=== PATIENT | male | born 1960 | race Caucasian/White ===

== ENCOUNTER 2018-02-21 03:16 | Emergency (ER) | payer OTHER ==
[~2018-02-21] VITALS: Ht 177.8 cm; Wt 118.3 kg
[~2018-02-21 03:16] MED LIST: AMOX500T PO; FLON0.053; LORTA5; VALT1TAB26 PO
[2018-02-21 03:21] VITALS: BP 150/76; PULSE 101; RESP 18; TEMP 99.1; O2SAT 95
--- NOTE | 2018-02-21 03:35 | PD ---
HPI Chief Complaint: Right leg pain Time Seen by Provider: 03:24 Travel History International Travel<30 days: No Contact w/Intl Traveler<30days: No History of Present Illness HPI Is a 58-year-old man presents emergency department complaining of right knee pain, pains mostly in the knee and behind the knee. He has a history of chronic knee problems in the right knee. States he is worried about a blood clot because of the pain behind the knee and because he had a 2 hour flight to get down to [place]. No history of blood clots. He otherwise had been feeling generally well and healthy. No other complaints. Pains been ongoing for about a month or so. History Past Medical History Narrative Medical COPD Knee problems Social History Alcohol Use: Yes Tobacco Use: No Allergies-Medications (Allergen,Severity, Reaction): Coded Allergies: No Known Allergies (Unverified , 01/05/15) Reported Meds & Prescriptions Reported Meds & Active Scripts Active Valtrex (Valacyclovir HCl) 1 Gm Tab 1 Gm PO BID 5 Days Hydrocodone/Acetaminophen 5 mg/325 mg 1 Tab 1 Tab .XX Q6 PRN Reported Flonase (Fluticasone Propionate) 0.05 % Naspr 1 Spr NA DAILY 1 SPRAY EACH NOSTRIL Amoxil (Amoxicillin) 500 Mg Tab 500 Mg PO BID Review of Systems Except as stated in HPI: all other systems reviewed are Neg Physical Exam Narrative GENERAL: Well-appearing 50-year-old man, no acute distress. SKIN: Warm and dry. CARDIOVASCULAR: Warm and well perfused. RESPIRATORY: Normal rate and effort. MUSCULOSKELETAL: Focused examination of the right leg shows a little bit of knee effusion, and a little bit of fullness right in the popliteal fossa. Full range of motion of the knee. There is minimal warmth to the knee itself. There is no calf swelling or asymmetry. There is no calf tenderness. There is no lower extremity edema. NEUROLOGICAL: Awake and alert. No gross deficits. Data Data Last Documented VS Vital Signs Date Time Temp Pulse Resp B/P (MAP) Pulse Ox O2 Delivery O2 Flow Rate FiO2 18 03:21 99.1 101 18 150/76 (100) 95 MDM Medical Decision Making Medical Screen Exam Complete: Yes Emergency Medical Condition: Yes Differential Diagnosis DVT, inflammatory arthritis, Bill's cyst, other Narrative Course Medical decision making very is a 50-year-old man presents emerged from complaining of knee pain. He is a little bit of an effusion, appears to be a Bill's cyst. There is no calf swelling edema fullness tenderness or ankle swelling to suggest DVT. History of significant knee problems. Recommend supportive treatment. Diagnosis Primary Impression: Inflammatory arthritis Additional Instructions: Use knee brace as needed for comfort. Take short course of anti-inflammatory pain medicines as needed. Follow-up with her primary doctor and return home. Return to the emergency department for any calf swelling pain redness fullness ankle edema or any other new or worsening symptoms. Med/Other Pt SpecificInfo: No Change to Meds Disposition: 01 DISCHARGE HOME Condition: Stable Srinivasan Kirk MD Feb 21, 2018 03:35
[2018-02-21 03:37] VITALS: BP 150/76; PULSE 101; RESP 18; TEMP 99.1; O2SAT 95
[2018-02-21] MEDS ORDERED: NAPROXEN 500 MG TAB PO ONE (03:45)
[2018-02-21] MEDS ORDERED: SYMB160A INH (03:50)
[2018-02-21] MEDS ORDERED: FLUT1INH INH (03:50)
[2018-02-21 04:14] VITALS: BP 161/80
== END 2018-02-21 04:21 | disposition home or self-care (01) ==
LOC: PHED 03:16
DX: M06.4 Inflammatory polyarthropathy (principal); J44.9 Chronic obstructive pulmonary disease, unspecified; Z79.899 Other long term (current) drug therapy
CPT/HCPCS: 99283